=== PATIENT | female | born 1985 | race Caucasian/White ===

== ENCOUNTER 2025-04-21 13:01 | Outpatient (REF) | payer OTHER, SELFPAY ==
--- NOTE | ~2025-04-21 | XR_ITS ---
CLINICAL HISTORY: CERVICAL SPINE PAIN --- Additional Notes or Special Instructions: WO Four views of the cervical spine. COMPARISON: None FINDINGS: Normal vertebral body alignment. No evidence of acute vertebral body injury. Normal C1-C2 articulation. Vertebral disc space heights are preserved. No significant degenerative changes Visualized paravertebral soft tissues and lung apices are unremarkable. IMPRESSION: 1. No radiographic evidence of acute injury to the cervical spine. No significant degenerative changes. This document has been electronically signed by: Ron Christian MD on 04/24/2025 16:47:24
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
== END 2025-04-21 13:02 | disposition home or self-care (01) ==
LOC: HO.XRAY 13:01
PROVIDERS: PCP Student in an Organized Health Care Education/Training Program; Visit Provider Student in an Organized Health Care Education/Training Program
DX: M54.2 Cervicalgia (principal)
CPT/HCPCS: 72040

== ENCOUNTER → 2025-04-21 13:13 | Outpatient (BNV) | payer OTHER, SELFPAY | PROVIDERS: PCP Student in an Organized Health Care Education/Training Program; Visit Provider Radiology Diagnostic Radiology | DX: M54.2 Cervicalgia (principal) | CPT/HCPCS: 72040 ==